=== PATIENT | female | born 1995 | race Caucasian/White ===

== ENCOUNTER 2022-10-02 08:29 | Outpatient (AMB) | payer OTHER, SELFPAY ==
--- NOTE | 2022-10-02 09:17 | AM.OFFWIN_ITS ---
Intake Vital Signs 10/02/22 09:23 Height 5 ft 3 in Weight 159 lb 6 oz BMI 28.2 BP 130/70 Blood Pressure Location Rt brachial Position Sitting Pulse 87 Pulse Source Pulse Oximeter Temp 97.5 F Temp Source Temporal Artery Scan Pulse Oximetry (%) 100 Oxygen Delivery Method Room Air Intake Visit Reasons: [employer] SCI[employer] DIRECT[employer] Cough [id number] Intake Note: Pt is here c/o ongoing cough for the last 7 months. Pt states she tested negative for covid every time. 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 Patient reports she has a cough for the past few months. Symptoms are worse at night or after exercise. Nonproductive in nature. No fevers or chills. Unable to see her primary care provider. PFSH Social History Patient Tobacco Use Status: Never used Tobacco Physical Exam Vital Signs: Last Vital Signs Temp 97.5 F 10/02/22 09:23 Pulse 87 10/02/22 09:23 BP 130/70 10/02/22 09:23 Pulse Ox 100 10/02/22 09:23 Oxygen Delivery Method Room Air 10/02/22 09:23 BMI result Body Mass Index 28.2 Const General: cooperative and healthy appearing Nutritional Appearance: well nourished Orientation/consciousness: patient oriented x3 Limitations: no limitations HEENT Head: Yes normal to inspection Eyes General: appearance normal, both eyes and all related structures Neck Neck: Yes normal visual inspection Chest Chest palpation & inspection: normal palpation of entire chest wall Resp Effort & Inspection: normal respiratory effort Neuro General: patient oriented x3 Assessment & Plan Assessment & Plan (1) Cough: Code(s): R05.9 - Cough, unspecified Plan: Most likely due to exercise-induced asthma or minor reactive airway disease. Advair and Zithromax added to the regimen. If symptoms are improving, patient was advised to make an appointment with her primary care provider for continuation of medication. Coding Level of Care Code Est Pt Level 4 (85110) Diagnoses Cough R05.9
[2022-10-02 09:23] VITALS: BP 130/70; PULSE 87; TEMP 36.4; O2SAT 100; BMI 28.2
== END 2022-10-02 09:56 | disposition home or self-care (01) ==
PROVIDERS: PCP Pediatrics; Visit Provider Internal Medicine
DX: R05.9 Cough, unspecified (principal)
CPT/HCPCS: 99214